=== PATIENT | male | born 1945 | race Hispanic/Latino ===

== ENCOUNTER 2017-10-11 13:37 | Observation (INO) | payer OTHER ==
[~2017-10-11] VITALS: Ht 167.6 cm; Wt 74.4 kg
[~2017-10-11 13:37] MED LIST: APRESOLINE25 MG PO
[2017-10-11] MEDS ORDERED: SODIUM CHLORIDE 0.9% 1000ML 1,000 ML IV STA (13:57)
[2017-10-11] MEDS ORDERED: ONDANSETRON HCL 4 MG ORAL DISINTEGRATING TAB PO ONE (14:00)
[2017-10-11] MEDS ORDERED: ASPIRIN 81 MG CHEW TAB PO ONE (14:00)
[2017-10-11 14:11] LABS: BASOPHILS % 0.4 % (0.0-1.0); EOSINOPHILS % 0.2 % (0.0-6.0); HEMATOCRIT 40.2 % (38.2-49.6); HEMOGLOBIN 14.4 g/dL (14.0-18.0); LYMPHOCYTES % 10.3 % (18.0-39.1); MEAN CORPUSCULAR HEMOGLOBIN 30.1 pg (28-32); MEAN CORPUSCULAR HGB CONC 35.8 g/dL (31-35); MEAN CORPUSCULAR VOLUME 83.9 fL (81-99); MONOCYTES # (AUTO) 0.7 (0.2-0.8); MONOCYTES % 7.2 % (4.4-11.3); NEUTROPHILS # (AUTO) 8.1 (2.1-6.9); NEUTROPHILS % 80.6 % (38.7-80.0); PLATELET COUNT 179 x10e3/uL (140-360); RED BLOOD COUNT 4.79 x10e6/uL (4.3-5.7)
[2017-10-11] MEDS ORDERED: DIATRIZOATE MEGL/DIATRIZOA SOD 30 ML BTL PO ONE (14:13)
[2017-10-11 14:14] LABS: INR 1.15; PROTHROMBIN TIME 13.8 seconds (11.9-14.5)
[2017-10-11 14:26] LABS: ALBUMIN 3.2 g/dL (3.5-5.0); ALBUMIN/GLOBULIN RATIO 0.6 (0.8-2.0); ANION GAP 16.1 mmol/L (8-16); CALCIUM 9.8 mg/dL (8.4-10.2); CREATININE, SERUM 1.26 mg/dL (0.72-1.25); POTASSIUM 3.1 mmol/L (3.5-5.1)
--- NOTE | 2017-10-11 14:31 | Diagnostic Imaging Report ---
EXAMINATION: CHEST SINGLE (PORTABLE) INDICATION: \S\ERMD ORDER \[id number] \S\1400 \S\Y COMPARISON: 07/02/2016 FINDINGS: AP view TUBES and LINES: None. LUNGS: Lungs are well inflated. Lungs are clear. There is no evidence of pneumonia or pulmonary edema. PLEURA: No pleural effusion or pneumothorax. HEART AND MEDIASTINUM: The cardiomediastinal silhouette is unremarkable. BONES AND SOFT TISSUES: No acute osseous lesion. Soft tissues are unremarkable. UPPER ABDOMEN: No free air under the diaphragm. IMPRESSION: No acute thoracic abnormality. Signed by: DR. Jerman Dawson MD on 10/11/2017 2:28 PM
[2017-10-11 14:48] LABS: CREATINE KINASE MB 0.5 ng/mL (0-5.0); THYROID STIMULATING HORMONE 2.843 uIU/mL (0.350-4.940)
[2017-10-11] MEDS ORDERED: POTASSIUM CHLORIDE 20 MEQ TAB CR PO STA (15:09)
--- NOTE | 2017-10-11 16:24 | Diagnostic Imaging Report ---
EXAM: CT Abdomen and Pelvis WITH contrast INDICATION: \S\R/O SBO \[id number] \S\1520 COMPARISON: 12/20/2011 TECHNIQUE: Abdomen and pelvis were scanned utilizing a multidetector helical scanner from the lung base to the pubic symphysis after administration of IV contrast. Coronal and sagittal reformations were obtained. Routine protocol was performed. Scan was performed when during portal venous phase. IV CONTRAST: 100 mL of Isovue-370 ORAL CONTRAST: Gastroview COMPLICATIONS: None RADIATION DOSE: Total DLP: ... mGy*cm Estimated effective dose: (DLP x 0.015 x size factor) mSv CTDIvol has been reviewed. It is below the limits set by the Radiation Protocol Committee (RPC). FINDINGS: LINES and TUBES: None. LOWER THORAX: Coronary artery and mitral annular calcifications. HEPATOBILIARY: No focal hepatic lesions. No biliary ductal dilation. GALLBLADDER: Small gallstone. No wall thickening. SPLEEN: No splenomegaly. PANCREAS: No focal masses or ductal dilatation. ADRENALS: No adrenal nodules KIDNEYS/URETERS: Poor cortical medullary differentiation of the inferior pole left the left kidney. No hydronephrosis. No cystic or solid mass lesions. No stones. GI TRACT: No abnormal distention, wall thickening, or evidence of bowel obstruction. There are diverticula within the colon without evidence of diverticulitis. Persistent mild thickening left paracolic gutter (series 2 image 34). Appendix is normal. PELVIC ORGANS/BLADDER: Circumferential bladder wall thickening. A punctate calcification near the left ureterovesicular junction appears to be outside of the ureter on coronal reconstructions. LYMPH NODES: Stable prominent godfrey hepatis 1.3 cm node. VESSELS: There is mild atherosclerotic disease in the aorta and major arterial branches. PERITONEUM / RETROPERITONEUM: No free air or fluid. BONES: There are degenerative changes in the lumbar spine. SOFT TISSUES: Small fat-containing left lumbar hernia with 1.2 cm neck. IMPRESSION: No evidence of bowel obstruction. Circumferential bladder wall thickening suggestive of cystitis. Additional focal areas of decreased cortical medullary differentiation in the left kidney are suggestive of pyelonephritis. Recommend correlation with urinalysis and follow up ultrasound to reevaluate the kidneys after appropriate therapy. Cholelithiasis. Signed by: DR. Jerman Dawson MD on 10/11/2017 4:21 PM
[2017-10-11] MEDS ORDERED: ONDANSETRON HCL INJ 2 MG/ML VIAL IV PRN (17:00)
[2017-10-11] MEDS ORDERED: MORPHINE SULFATE 2 MG/ML SYR IV PRN (17:00)
[2017-10-11] MEDS ORDERED: CEFTRIAXONE SOD 1 GM VIAL IV SCH (17:00)
[2017-10-11 17:02] LABS: BILIRUBIN,URINE NEGATIVE (NEGATIVE); CLARITY,URINE CLEAR (CLEAR); COLOR,URINE YELLOW (YELLOW); KETONES,URINE NEGATIVE (NEGATIVE); LEUKOCYTE ESTERASE ,URINE NEGATIVE (NEGATIVE); NITRITE,URINE NEGATIVE (NEGATIVE); PROTEIN,URINE DIPSTICK NEGATIVE (NEGATIVE); URINE UROBILINOGEN 1 mg/dL (0.2 - 1)
[2017-10-11 17:06] LABS: BACTERIA,URINE FEW /HPF; EPITHELIAL CELLS,URINE FEW /LPF; RBC,URINE 0-5 /HPF (0-5); WBC,URINE (MAN) 0-5 /HPF (0-5)
--- OUTSIDE RECORDS SUMMARY | 2017-10-11 17:15 | XMS REPORT ---
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 Allergies, Adverse Reactions, Alerts This patient has no known allergies or adverse reactions. Medications This patient has no known medications. Results Test Description Test Time Test Comments Text Results Atomic Results Result Comments CHEST SINGLE (PORTABLE) [place] [id number] Patient Name: DAMI GREEN MR #: [id number] : 1945 Age/Sex: 72/M Req #: [id number] Adm Physician: Ordered by: SOLO BOWERS POLYSOMNOGRAPHY TECH Report # : [id number] Location: ER Room/Bed: Procedure: [id number] DX/CHEST SINGLE (PORTABLE) Exam Date: 10/11/17 Exam Time: 1400 REPORT STATUS: Signed EXAMINATION: CHEST SINGLE ( PORTABLE) INDICATION: COMPARISON: 07/02/2016 FINDINGS: AP view TUBES and LINES: None. LUNGS: Lungs are well inflated. Lungs are clear. There is no evidence of pneumonia or pulmonary edema. PLEURA: No pleural effusion or pneumothorax. HEART AND MEDIASTINUM: The cardiomediastinal silhouette is unremarkable. BONES AND SOFT TISSUES: No acute osseous lesion. Soft tissues are unremarkable. UPPER ABDOMEN: No free air under the diaphragm. IMPRESSION: No acute thoracic abnormality. Signed by: DR. Jerman Galvez MD on 10/11/2017 2:28 PM Dictated By: JERMAN GALVEZ MD 27 Transcribed By: VALERIE on 10/11/171427 COPY TO: SOLO BOWERS NP CT ABDOMEN/PELVIS W [place] [address] Patient Name: DAMI GREEN MR #: [id number] : 1945 Age/Sex: 72/M Req #: [id number] Adm Physician: Ordered by: SOLO BOWERS NP Report #: [id number] Location: ER Room/Bed: Procedure: [id number] CT/CT ABDOMEN/PELVIS W Exam Date: 10/11/17 Exam Time : 1520 REPORT STATUS: Signed EXAM: CT Abdomen and Pelvis WITH contrast INDICATION: COMPARISON: 12/20/2011 TECHNIQUE: Abdomen and pelvis were scanned utilizing a multidetector helical scanner from the lung base to the pubic symphysis after administration of IV contrast. Coronal and sagittal reformations were obtained. Routine protocol was performed. Scan was performed when during portal venous phase. IV CONTRAST: 100 mL of Isovue-370 ORAL CONTRAST: Gastroview COMPLICATIONS: None RADIATION DOSE: Total DLP: ... mGy*cm Estimated effective dose: (DLP x 0.015 x size factor) mSv CTDIvol has been reviewed. It is below the limits set by the Radiation Protocol Committee (RPC) . FINDINGS: LINES and TUBES: None. LOWER THORAX: Coronary artery and mitral annular calcifications. HEPATOBILIARY: No focal hepatic lesions. No biliary ductal dilation. GALLBLADDER: Small gallstone. No wall thickening. SPLEEN: No splenomegaly. PANCREAS: No focal masses or ductal dilatation. ADRENALS: No adrenal nodules KIDNEYS/URETERS: Poor cortical medullary differentiation of the inferior pole left the left kidney. No hydronephrosis. No cystic or solid mass lesions. No stones. GI TRACT: No abnormal distention, wall thickening, or evidence of bowel obstruction. There are diverticula within the colon without evidence of diverticulitis. Persistent mild thickening left paracolic gutter (series 2 image 34). Appendix is normal. PELVIC ORGANS/BLADDER: Circumferential bladder wall thickening. A punctate calcification near the left ureterovesicular junction appears to be outside of the ureter on coronal reconstructions. LYMPH NODES: Stable prominent godfrey hepatis 1.3 cm node. VESSELS: There is mild atherosclerotic disease in the aorta and major arterial branches. PERITONEUM / RETROPERITONEUM: No free air or fluid. BONES: There are degenerative changes in the lumbar spine. SOFT TISSUES : Small fat-containing left lumbar hernia with 1.2 cm neck. IMPRESSION: No evidence of bowel obstruction. Circumferential bladder wall thickening suggestive of cystitis. Additional focal areas of decreased cortical medullary differentiation in the left kidney are suggestive of pyelonephritis. Recommend correlation with urinalysis and follow up ultrasound to reevaluate the kidneys after appropriate therapy. Cholelithiasis. Signed by: DR. Jerman Galvez MD on 10/11/2017 4:21 PM Dictated By: JERMAN GALVEZ MD 162 Transcribed By: VALERIE on 10/11/17 162 COPY TO: SOLO BOWERS NP
[2017-10-11] MEDS: D5.45%NS/KCL 20MEQ 1,000 ML IV SCH (17:30)
[2017-10-11] MEDS ORDERED: IOPAMIDOL 370 MG/ML 200 ML INFUS..BTL INJ ONE (18:01)
[2017-10-11] MEDS ORDERED: SODIUM CHLORIDE 0.9% 50ML 50 ML ONE (18:01)
[2017-10-11 18:06] VITALS: BP 125/61
[2017-10-11 20:00] VITALS: BP 110/58
[2017-10-12] VITALS (7 sets, daily range): BP systolic 117–135; BP diastolic 58–73
[2017-10-12] MEDS: D5.45%NS/KCL 20MEQ 1,000 ML IV SCH (05:50)
[2017-10-12 07:20] LABS: BASOPHILS % 0.5 % (0.0-1.0); EOSINOPHILS # (AUTO) 0.1 (0.0-0.4); EOSINOPHILS % 1.1 % (0.0-6.0); LYMPHOCYTES # (AUTO) 1.1 (1.0-3.2); LYMPHOCYTES % 16.2 % (18.0-39.1); MEAN CORPUSCULAR HEMOGLOBIN 29.8 pg (28-32); MEAN CORPUSCULAR HGB CONC 34.3 g/dL (31-35); MEAN CORPUSCULAR VOLUME 86.8 fL (81-99); MONOCYTES # (AUTO) 0.8 (0.2-0.8); MONOCYTES % 11.5 % (4.4-11.3); NEUTROPHILS # (AUTO) 4.6 (2.1-6.9); NEUTROPHILS % 69.5 % (38.7-80.0); PLATELET COUNT 159 x10e3/uL (140-360); RED BLOOD COUNT 4.03 x10e6/uL (4.3-5.7); RED CELL DISTRIBUTION WIDTH 12.4 % (11.7-14.4)
[2017-10-12 07:58] LABS: AMYLASE 82 U/L (25-125); ANION GAP 11.1 mmol/L (8-16); BLOOD UREA NITROGEN 18 mg/dL (7-26); BUN/CREATININE RATIO 21 (6-25); CALCIUM 8.7 mg/dL (8.4-10.2); CARBON DIOXIDE 27 mmol/L (22-29); CHLORIDE 97 mmol/L (98-107); CREATININE, SERUM 0.86 mg/dL (0.72-1.25); EST GLOMERULAR FILTRATION RATE > 60 ML/MIN (60-); GLUCOSE 176 mg/dL (74-118); LIPASE 92 U/L (8-78); POTASSIUM 4.1 mmol/L (3.5-5.1); SODIUM 131 mmol/L (136-145)
[2017-10-12] MEDS ORDERED: ONDANSETRON HCL 4 MG ORAL DISINTEGRATING TAB PO PRN (10:00)
[2017-10-12] MEDS: LEVOFLOXACIN 500 MG TAB PO SCH (10:10)
--- NOTE | 2017-10-12 10:53 | Consultation ---
DATE OF CONSULTATION: REASON FOR CONSULTATION: Urinary tract infection. HISTORY: This 72-year-old male who is admitted to the hospital with fever, joint pain and anorexia of 2-3 days duration. The patient has had on September 22, 2017, a transrectal biopsy of the prostate showing that he had cancer of the prostate, [place] 8 with lymphovascular invasion, as well as perineal invasion. The patient and I had discussed with his family present the cancer and the choices of treatment. The patient had been thinking about what he is going to do. With a Tex 8 and 2 risk factors, he falls into group 5 with a possibility of in the next 10 days from cancer of the prostate of 66%. The patient is in the hospital for IV antibiotics. Urine culture showed a gram-negative bacillus. We should wait until the patient has a culture report showing the sensitivity to this gram-negative bacillus, and then he should go home with oral antibiotics for the next 2-4 weeks. The patient is still undecided as to what he is going to do about his prostate cancer. IMPRESSION 1. Urinary tract infection. 2. Prostate cancer, untreated. RECOMMENDATIONS: IV antibiotics. Await until the culture report is available, and then oral antibiotics for 2-4 weeks at home. I will follow him in the office. Job#: [id number] PAULA
--- NOTE | 2017-10-12 14:19 | History and Physical ---
PCP: Dr. Gaudencio Gresham CHIEF COMPLAINT: No appetite, loose stool, abdominal cramping. No abdominal pain. No chest pain or shortness of breath. HISTORY OF PRESENT ILLNESS: Patient is a 72-year-old male who had prostate biopsy, multiple biopsies, approximately 2 weeks ago. Since then the patient has had no appetite. He has some cramping and occasional loose stool, but no abdominal pain. No nausea or vomiting. The patient came to the hospital for evaluation. CT scan of the abdomen and pelvis with contrast showed that there is circumferential urinary bladder thickening suggestive of cystitis. There is no sign of pancreatitis. The patient is otherwise stable at this time. No complaint of abdominal pain. He is a little depressed due to his prostate biopsy afterwards. He is stressed regarding the surgery but otherwise no sign of any suicidal ideation. He is doing a little bit better. PAST MEDICAL HISTORY: Status post prostate biopsy, hypertension, hyperlipidemia. PAST SURGICAL HISTORY: Noncontributory. SOCIAL HISTORY: No smoking. No alcohol consumption. No recreational drugs. MEDICATIONS: Currently not taking any medication. ALLERGIES: NO KNOWN ALLERGY. PHYSICAL EXAMINATION VITAL SIGNS: Temperature is 98. Blood pressure 126/58. Pulse rate 55. Respirations 18. GENERAL: The patient is not in any distress. He is awake, pain-free, feeling better. HEENT: Normocephalic, atraumatic, anicteric. NECK: Supple grossly. PULMONARY: Diminished breath sounds. CARDIOVASCULAR: S1 and S2, regular rate and rhythm. ABDOMEN: Soft, unremarkable, nontender. No distention. No guarding. EXTREMITIES: No cyanosis or edema. NEUROLOGIC: No focal deficit. LABORATORY: WBC is 10.0, hemoglobin 14, hematocrit 40, platelets 179. Urine is negative. Coagulase is unremarkable. Chemistry: Sodium is 131, potassium 4.1, chloride 97, bicarb 27. BUN 18 and creatinine 0.8. Glucose is 176. Lipase is 141 and 292. TSH is 2.84. Liver enzymes are slightly elevated, but otherwise insignificant. IMPRESSION 1. Possible cystitis with prostatitis post prostate biopsy. 2. Depression. 3. Possible gastroenteritis causing low potassium. PLAN: Potassium replaced. Regular diet. Continue with supportive measures. Discontinue Rocephin and start the patient on Levaquin. If the patient does well, the patient should be able to go home within 24 to 48 hours. The is no pancreatitis. No sign of gallbladder infection. There is no sign of sepsis or any sign of pyelonephritis. Job#: [id number] MH
[2017-10-12] MEDS ORDERED: MIRTAZAPINE 15 MG TAB PO SCH (21:00)
[2017-10-13] VITALS: BP 115/55
[2017-10-13 04:00] VITALS: BP 136/76
[2017-10-13 07:20] VITALS: BP 136/66
[2017-10-13 07:26] LABS: ANION GAP 12.2 mmol/L (8-16); BLOOD UREA NITROGEN 17 mg/dL (7-26); BUN/CREATININE RATIO 16 (6-25); CALCIUM 9.1 mg/dL (8.4-10.2); CARBON DIOXIDE 27 mmol/L (22-29); CHLORIDE 101 mmol/L (98-107); CREATININE, SERUM 1.04 mg/dL (0.72-1.25); EST GLOMERULAR FILTRATION RATE > 60 ML/MIN (60-); GLUCOSE 134 mg/dL (74-118); MAGNESIUM 1.8 MG/DL (1.3-2.1); PHOSPHORUS 3.1 MG/DL (2.3-4.7); POTASSIUM 4.2 mmol/L (3.5-5.1); SODIUM 136 mmol/L (136-145)
[2017-10-13 07:48] VITALS: BP 136/66
--- NOTE | 2017-10-13 08:47 | Discharge Summary ---
PCP: Dr. Gaudencio Cox CONSULTANTS: Dr. Gaudencio Cox FINAL DIAGNOSES 1. Urinary tract infection associated with prostatitis with Escherichia coli sensitive to multiple antibiotics. 2. Major depression and appetite suppressed secondary to diagnosis of high-grade prostate cancer. A 72-year-old male with prostate cancer recently diagnosed with biopsy approximately 2 weeks ago. The patient came in with no appetite, pain and depressed. Patient has no significant systemic problems. He had no pancreatitis. He does have prostatitis infection and cystitis that may have contributed to slightly elevated lipase. Patient has unremarkable noncomplicated gallstone. Patient had E. coli in the urine. Culture sensitive to multiple antibiotics. More importantly, the patient has not decided whether he wants to treat his prostate cancer because he per Dr. Cox the patient has high-grade prostate cancer with biopsy, and the patient is due to decide on whether he wants to start treatment. The patient is stable. Started the patient on Remeron 15 mg at night. He seemed to tolerate it well. Patient is doing a little bit better. He is stable. He is on Levaquin 500 mg daily orally and tolerated well. The patient will be discharged home today. Discharge home medication including Levaquin 500 mg daily for 7 days and Remeron 15 mg at night. Patient instructed follow up with Dr. Gaudencio Cox for decision on his prostate treatment. He will follow up with his family doctor for any adjustment of his depression medications. Patient is stable and discharged home today. Job#: [id number] DC
[2017-10-13] MEDS: LEVOFLOXACIN 500 MG TAB PO SCH (09:51)
[2017-10-13] MEDS ORDERED: LEVAQUIN500 MG PO (11:03)
[2017-10-13] MEDS ORDERED: REMERON15 MG PO (11:06)
[2017-10-13 11:47] VITALS: BP 116/58
== END 2017-10-13 12:26 | disposition home or self-care (01) ==
LOC: ER 13:37 → MED/SURG3 17:12 → INTOOBSV 17:12
PROVIDERS: ADMIT Internal Medicine; ATTEND Internal Medicine
DX: N41.3 Prostatocystitis (principal); K80.20 Calculus of gallbladder without cholecystitis without obstruction; K52.9 Noninfective gastroenteritis and colitis, unspecified; E87.6 Hypokalemia; I10 Essential (primary) hypertension; E78.5 Hyperlipidemia, unspecified; C61 Malignant neoplasm of prostate; C77.9 Secondary and unspecified malignant neoplasm of lymph node, unspecified; C78.6 Secondary malignant neoplasm of retroperitoneum and peritoneum; B96.89 Other specified bacterial agents as the cause of diseases classified elsewhere; F32.9 Major depressive disorder, single episode, unspecified; B96.20 Unspecified Escherichia coli [E. coli] as the cause of diseases classified elsewhere; Z16.35 Resistance to multiple antimicrobial drugs
CPT/HCPCS: 36415; 80048; 82746; 83036; 83735; 84100; 87186; 93005; G0378 ×3; 99284; J0696; J7030; Q9967

== ENCOUNTER → 2017-12-08 | Outpatient (CLI) | payer OTHER ==
[~2017-12-08] MED LIST changes: +LEVAQUIN500 MG PO; +REMERON15 MG PO
--- NOTE | 2017-12-08 15:07 | Diagnostic Imaging Report ---
Bone Scan, delayed phase INDICATION: 72 M with prostate cancer diagnosed in 09/2017. COMPARISON: CT abdo/pelvis 10/11/2017 REPORT: Approximately 3.5 hours following intravenous administration of 27.5 mCi of Tc-99m MDP, delayed total body images in the anterior and posterior projections and selected spot images were obtained. Degenerative changes are noted throughout the cervical and thoracolumbar spine as well as in the right sternoclavicular junction, bilateral shoulders and left knee. Otherwise, distribution of tracer activity is unremarkable throughout the skeletal system. No abnormal accumulation of tracer is seen in the soft tissues or urinary tract. IMPRESSION: No scan evidence of metastatic bone disease. Signed by: Dr. Jessica Hung M.D. on 12/08/2017 2:48 PM
== END ==
LOC: NM 09:22
PROVIDERS: ATTEND Radiology Radiation Oncology
DX: C61 Malignant neoplasm of prostate (principal)
CPT/HCPCS: 78306; A9503

== ENCOUNTER 2018-05-31 17:52 | Observation (INO) | payer MEDICARE, OTHER ==
[~2018-05-31] VITALS: Ht 165.1 cm; Wt 76.3 kg
[2018-05-31 19:00] LABS: BASOPHILS % 0.2 % (0.0-1.0); EOSINOPHILS % 0.2 % (0.0-6.0); HEMATOCRIT 34.6 % (38.2-49.6); HEMOGLOBIN 11.7 g/dL (14.0-18.0); LYMPHOCYTES # (AUTO) 0.4 (1.0-3.2); LYMPHOCYTES % 7.5 % (18.0-39.1); MEAN CORPUSCULAR HEMOGLOBIN 29.7 pg (28-32); MEAN CORPUSCULAR HGB CONC 33.8 g/dL (31-35); MEAN CORPUSCULAR VOLUME 87.8 fL (81-99); MONOCYTES # (AUTO) 0.5 (0.2-0.8); MONOCYTES % 8.8 % (4.4-11.3); NEUTROPHILS # (AUTO) 4.4 (2.1-6.9); NEUTROPHILS % 82.6 % (38.7-80.0); PLATELET COUNT 144 x10e3/uL (140-360); RED BLOOD COUNT 3.94 x10e6/uL (4.3-5.7); RED CELL DISTRIBUTION WIDTH 11.9 % (11.7-14.4)
[2018-05-31] MEDS ORDERED: ASPIRIN 81 MG CHEW TAB PO ONE ×2 (19:00→21:30)
[2018-05-31 19:13] LABS: INR 0.95; PROTHROMBIN TIME 13.5 seconds (11.9-14.5)
[2018-05-31 19:14] LABS: PARTIAL THROMBOPLASTIN TIME 24.5 seconds (23.8-35.5)
--- NOTE | 2018-05-31 19:19 | Diagnostic Imaging Report ---
Examination: Single AP view of the chest. COMPARISON: CT abdomen and pelvis 10/11/2017, portable chest 10/11/2017 INDICATION: Chest pain, passed out IMPRESSION: 1. Lines and Tubes: None 2. Lungs are grossly clear. No consolidation or effusion. 3. Mild prominence of the cardiac silhouette, which may be partly due to portable AP projection. Pulmonary vasculature is normal. 4. No acute bony abnormalities. Signed by: Dr. Jairo Herrera M.D. on 05/31/2018 7:16 PM
[2018-05-31 19:23] LABS: ALBUMIN 3.4 g/dL (3.5-5.0); ALBUMIN/GLOBULIN RATIO 0.9 (0.8-2.0); ANION GAP 15.7 mmol/L (8-16); CALCIUM 9.4 mg/dL (8.4-10.2); CREATININE, SERUM 2.12 mg/dL (0.72-1.25); POTASSIUM 3.7 mmol/L (3.5-5.1)
[2018-05-31 19:30] LABS: CREATINE KINASE MB 0.5 ng/mL (0-5.0)
--- NOTE | 2018-05-31 20:33 | Diagnostic Imaging Report ---
EXAMINATION: Head CT HISTORY: Dizziness, HTN, diabetes. COMPARISON: None. TECHNIQUE: Multidetector axial images were obtained without contrast from the foramen magnum to the vertex . The images were reconstructed using brain and bone algorithms. Thin section brain images were reformatted into coronal and sagittal planes. Image quality: Motion/streaking artifact limits the evaluation of the skull base and posterior cranial fossa. Dose modulation, iterative reconstruction, and/or weight based adjustment of the mA/kV was utilized to reduce the radiation dose to as low as reasonably achievable. FINDINGS: Parenchyma: 1. Scatter of hypodensity in the periventricular, dailey radiata, centrum semiovale and juxtacortical white matter, which are non-specific but most likely related to chronic small vessels ischemic changes. 2. Small chronic lacunar infarct in the right head of caudate. 3. No mass or hemorrhage. No CT evidence of acute territorial vascular insult. Extra-axial spaces:No abnormal density. No extra-axial fluid collections Brain volume: Normal for age. Ventricles: No hydrocephalus or displacement. Arteries: No density suggestive of thrombus. Dural sinuses: No abnormal density. Extra-axial spaces: No abnormal density. Foramen magnum: No mass, Chiari malformation, or basilar invagination. Sella: No obvious mass. Paranasal/mastoid sinuses: Minimal mucosa thickening of the left maxillary sinus. Skull/Scalp: No lytic or blastic lesions. No fractures. IMPRESSION: 1. No acute abnormalities. 2. Minimal chronic microvascular changes. 3. Small chronic lacunar infarct in the right head of caudate. Signed by: Dr. Jodi Burris M.D. on 05/31/2018 8:30 PM
[2018-05-31] MEDS ORDERED: SODIUM CHLORIDE 0.9% 1000ML 1,000 ML IV ONE (21:30)
--- NOTE | 2018-05-31 22:41 | NUR ---
Received report from ER nurse.
[2018-05-31] MEDS ORDERED: METFORMIN HCL850 MG (22:42)
[2018-05-31] MEDS ORDERED: FENOFIBRATE (22:42)
[2018-05-31] MEDS ORDERED: ATORVASTATIN CA40 MG (22:42)
[2018-05-31] MEDS ORDERED: ESOMEPRA (22:42)
[2018-05-31] MEDS ORDERED: [UNRECOGNIZED DRUG - OTHER] (22:42)
[2018-05-31] MEDS ORDERED: AMLODIPINE BESYL5 MG (22:42)
[2018-05-31] MEDS ORDERED: TAMSULOSIN HCL0.4 MG (22:42)
[2018-05-31] MEDS ORDERED: DEXTROSE 50% SYRINGE 50 ML IV PRN (22:45)
--- NOTE | 2018-05-31 22:55 | NUR ---
Patient arrived to floor via w/c. to room 204.
[2018-05-31 23:49] VITALS: BP 142/54
[2018-06-01] VITALS: BP 142/64
--- NOTE | 2018-06-01 | NUR ---
Assessment and physical completed. Patient AAOx3. Denies pain at this time. Patient requested to going walking around the hospital. Encourage to stay in room where he could be monitor at all times. Patient verbalized understanding. IV fluids started.
[2018-06-01] MEDS ORDERED: SODIUM CHLORIDE 0.9% 1000ML 1,000 ML ONE (02:08)
--- NOTE | 2018-06-01 02:30 | NUR ---
Blood drawn for 2nd set of cardiac enz. Patient tolerated well. Pressure dressing applied to site.
[2018-06-01 02:50] LABS: CREATINE KINASE 41 IU/L (30-200)
--- NOTE | 2018-06-01 03:59 | NUR ---
Patient resting quitly at this time. Continue monitor.
[2018-06-01 04:00] VITALS: BP 126/59
[2018-06-01 05:43] LABS: BILIRUBIN,URINE NEGATIVE (NEGATIVE); CLARITY,URINE SL CLOUDY (CLEAR); COLOR,URINE YELLOW (YELLOW); KETONES,URINE NEGATIVE (NEGATIVE); LEUKOCYTE ESTERASE ,URINE NEGATIVE (NEGATIVE); NITRITE,URINE POSITIVE (NEGATIVE); PROTEIN,URINE DIPSTICK NEGATIVE (NEGATIVE); URINE UROBILINOGEN 0.2 mg/dL (0.2 - 1)
[2018-06-01 05:47] LABS: BACTERIA,URINE MANY /HPF; EPITHELIAL CELLS,URINE RARE /LPF
[2018-06-01] MEDS ORDERED: SODIUM CHLORIDE 0.9% 1000ML 1,000 ML IV SCH (06:30)
--- NOTE | 2018-06-01 07:10 | NUR ---
Walking rounds done and report received from night nurse. Patient is awake and alert x3 in NAD. POC discussed. Patient instructed to call for assistance as needed and verbalized understanding. Call peterson within reach.
[2018-06-01] MEDS: INSULIN REGULAR, HUMAN 100 UNIT/1 ML 3ML VIAL SQ SCH ×2 (07:30→11:30)
[2018-06-01 08:00] VITALS: BP 126/59
[2018-06-01 08:09] VITALS: BP 138/64
[2018-06-01 10:27] LABS: CREATINE KINASE MB 0.8 ng/mL (0-5.0)
--- NOTE | 2018-06-01 10:50 | Discharge Summary ---
The patient was in observation. PCP: Dr. Gaudencio Gresham FINAL DIAGNOSES 1. Near syncopal episode after 3 beers and drinking at the bar. 2. Hypoglycemia secondary to chronic kidney disease and taking diabetic medication. SUMMARY: The patient is a 72-year-old male with chronic kidney disease. The patient does have hypertension. He apparently was drinking at the bar, 2-3 beers, and apparently he was having near passing out. The patient is otherwise stable. Workup otherwise unremarkable. He did tell me that his blood sugar has been low due to medications. He does have chronic kidney disease and hypertension. His EKG showed normal sinus rhythm. There is no ST-T wave changes. The patient is stable. He does want go home, and I agree. Advised the patient to hold for on his metformin and diabetic medication due to his blood sugar and also chronic kidney disease. The patient is likely dehydrated as well. He was just rehydrated and is stable with a liter of normal saline. Patient is stable and discharged home today. Follow up with Dr. Gaudencio Gresham in approximately 1 week. Job#: [id number] PR
--- NOTE | 2018-06-01 12:35 | NUR ---
Patient discharged home with written instructions. He verbalized understanding. Brother provided ride home. IV dc'd, cath intact and small dressing intact.
--- NOTE | 2018-06-01 14:05 | NUR ---
CASE MANAGEMENT INITIAL ASSESSMENT PATIENT IS DISCHARGING HOME WITH NO NEEDS. PATIENT LIVES HOME WITH [facility]. PATIENT WITH CANE. WLAKER AND WHEELCHAIR FOR ASSISTANCE IF NEEDED. LOPEZ GIVEN WITH EXPLANATION. ORIGINAL COPY PLACED IN CHART. COPY OF DOCUMENT GIVEN TO PATIENT AND PLACED IN CARE TRANSITION FOLDER. PATIENT STATES NO FURTHER QUESTIONS REGARDING DISCHARGE PLAN.
== END 2018-06-01 12:35 | disposition home or self-care (01) ==
LOC: ER 17:52 → ERHOLD 21:40 → MED/SURG 23:05
PROVIDERS: ADMIT Internal Medicine; ATTEND Internal Medicine
DX: R55 Syncope and collapse (principal); E11.649 Type 2 diabetes mellitus with hypoglycemia without coma; E78.5 Hyperlipidemia, unspecified; Z79.84 Long term (current) use of oral hypoglycemic drugs; Z85.46 Personal history of malignant neoplasm of prostate; E11.22 Type 2 diabetes mellitus with diabetic chronic kidney disease; I12.9 Hypertensive chronic kidney disease with stage 1 through stage 4 chronic kidney disease, or unspecified chronic kidney disease; N18.3 Chronic kidney disease, stage 3 (moderate); Z72.89 Other problems related to lifestyle
CPT/HCPCS: 36415; 70450; 71045; 80053; 80320; 81001; 82550 ×2; 82553 ×2; 82948 ×2; 83880; 84484 ×2; 85025; 85610; 85730; 93005; 99284; G0378 ×2; J1817; J7030

== ENCOUNTER 2024-03-24 13:40 | Emergency (ER) | payer MEDICARE ==
[~2024-03-24] VITALS: Ht 165.1 cm; Wt 76.2 kg
[~2024-03-24 13:40] MED LIST changes: +AMLODIPINE BESYL5 MG; +ATORVASTATIN CA40 MG; +ESOMEPRA; +FENOFIBRATE; +METFORMIN HCL850 MG; +TAMSULOSIN HCL0.4 MG; +[UNRECOGNIZED DRUG - OTHER]
[2024-03-24 15:59] VITALS: TEMP 97.6
[2024-03-24] MEDS: SODIUM CHLORIDE 0.9% 1000ML 1,000 ML IV ONE (16:26)
[2024-03-24] MEDS: ONDANSETRON HCL INJ 2MG/ML 2ML 2 MG/ML VIAL IV STA (16:26)
[2024-03-24 16:33] LABS: BASOPHILS % 0.2 % (0.0-1.0); EOSINOPHILS % 0.6 % (0.0-6.0); HEMATOCRIT 34.8 % (38.2-49.6); HEMOGLOBIN 11.8 g/dL (14.0-18.0); LYMPHOCYTES # (AUTO) 0.8 (1.0-3.2); LYMPHOCYTES % 16.8 % (18.0-39.1); MEAN CORPUSCULAR HEMOGLOBIN 29.3 pg (28-32); MEAN CORPUSCULAR HGB CONC 33.9 g/dL (31-35); MEAN CORPUSCULAR VOLUME 86.4 fL (81-99); MONOCYTES # (AUTO) 0.4 (0.2-0.8); NEUTROPHILS # (AUTO) 3.5 (2.1-6.9); NEUTROPHILS % 72.4 % (38.7-80.0); PLATELET COUNT 233 x10e3/uL (140-360); RED BLOOD COUNT 4.03 x10e6/uL (4.3-5.7); RED CELL DISTRIBUTION WIDTH 11.9 % (11.7-14.4); WHITE BLOOD COUNT 4.77 x10e3/uL (4.8-10.8)
[2024-03-24 16:51] LABS: ALBUMIN 3.4 g/dL (3.5-5.0); ALBUMIN/GLOBULIN RATIO 0.8 (0.8-2.0); BILIRUBIN,TOTAL 0.5 mg/dL (0.2-1.2); CREATININE, SERUM 0.94 mg/dL (0.72-1.25); TOTAL PROTEIN 7.9 g/dL (6.5-8.1)
[2024-03-24 16:53] LABS: MAGNESIUM 1.5 MG/DL (1.3-2.1)
[2024-03-24 16:56] LABS: TROPONIN I 0.009 ng/mL (0-0.300)
[2024-03-24 17:04] LABS: CLARITY,URINE SL CLOUDY (CLEAR); COLOR,URINE YELLOW (YELLOW)
[2024-03-24 17:05] LABS: BILIRUBIN,URINE NEGATIVE (NEGATIVE); GLUCOSE, URINE NEGATIVE (NEGATIVE); KETONES,URINE NEGATIVE (NEGATIVE); LEUKOCYTE ESTERASE ,URINE NEGATIVE (NEGATIVE); NITRITE,URINE NEGATIVE (NEGATIVE); PH,URINE 5.5 (5 - 7); PROTEIN,URINE DIPSTICK 2+ (NEGATIVE); URINE UROBILINOGEN 0.2 mg/dL (0.2 - 1)
[2024-03-24 17:17] LABS: BACTERIA,URINE FEW /HPF; HYALINE CASTS 0-1 (0-1); MUCUS,URINE FEW (RARE); TRANSITIONAL EPI CELLS,URINE MODERATE
[2024-03-24] MEDS ORDERED: IOPAMIDOL 370 MG/ML 100 ML INFUS..BTL INJ ONE (17:37)
[2024-03-24 18:53] VITALS: PULSE 68; RESP 18; O2SAT 98
[2024-03-24] MEDS ORDERED: PANTOPRAZOLE SO40 MG PO (19:40)
== END 2024-03-24 20:26 | disposition home or self-care (01) ==
LOC: ER 16:48
DX: R53.1 Weakness (principal); K29.70 Gastritis, unspecified, without bleeding; R63.8 Other symptoms and signs concerning food and fluid intake; K80.20 Calculus of gallbladder without cholecystitis without obstruction; R10.13 Epigastric pain; R94.31 Abnormal electrocardiogram [ECG] [EKG]
CPT/HCPCS: 36415; 71045; 74177; 80053; 81001; 82550; 83690; 83735; 84484; 85025; 93005; 99284; J2405; J2470; J7030; Q9967

== ENCOUNTER → 2024-06-02 | Day surgery (SDC) | payer MEDICARE ==
[2024-05-24 11:06] LABS: BASOPHILS % 0.4 % (0.0-1.0); EOSINOPHILS % 0.8 % (0.0-6.0); HEMATOCRIT 28.9 % (38.2-49.6); HEMOGLOBIN 9.4 g/dL (14.0-18.0); LYMPHOCYTES # (AUTO) 1.2 (1.0-3.2); LYMPHOCYTES % 24.9 % (18.0-39.1); MEAN CORPUSCULAR HEMOGLOBIN 29.5 pg (28-32); MEAN CORPUSCULAR HGB CONC 32.5 g/dL (31-35); MEAN CORPUSCULAR VOLUME 90.6 fL (81-99); MONOCYTES # (AUTO) 0.4 (0.2-0.8); MONOCYTES % 8.5 % (4.4-11.3); NEUTROPHILS # (AUTO) 3.2 (2.1-6.9); PLATELET COUNT 198 x10e3/uL (140-360); RED BLOOD COUNT 3.19 x10e6/uL (4.3-5.7); RED CELL DISTRIBUTION WIDTH 16.5 % (11.7-14.4); WHITE BLOOD COUNT 4.97 x10e3/uL (4.8-10.8)
[~2024-06-02] MED LIST changes: -AMLODIPINE BESYL5 MG; +AMLODIPINE BESYL5 MG PO; -ATORVASTATIN CA40 MG; +ATORVASTATIN CA40 MG PO; +BENICAR20 MG PO; +CALCIUM PO; +LACTATED RINGER'S 1,000 ML ONE; +LANTUS 3ML100 UNITS/ SC; +LEVOTHYROXINE88 MCG PO; +LIDOCAINE HCL 2% LOCAL INJ 5 ML SDV VIAL INJ ONE; +MELOXICAM15 MG PO; +METOCLOPRAMIDE10 MG PO; +OMEPRAZOLE40 MG PO; +PANTOPRAZOLE SO40 MG PO; +PROPOFOL IV EMULSION 50 ML IV ONE
[2024-06-02 09:17] VITALS: TEMP 98
[2024-06-02 09:30] VITALS: BP 135/68; PULSE 75; RESP 16; O2SAT 99
== END | disposition home or self-care (01) ==
LOC: OR 06:32
PROVIDERS: ATTEND Internal Medicine Gastroenterology
DX: Z12.11 Encounter for screening for malignant neoplasm of colon (principal); K63.5 Polyp of colon; K29.50 Unspecified chronic gastritis without bleeding; K31.89 Other diseases of stomach and duodenum; K44.9 Diaphragmatic hernia without obstruction or gangrene; K21.9 Gastro-esophageal reflux disease without esophagitis; K57.30 Diverticulosis of large intestine without perforation or abscess without bleeding; K64.8 Other hemorrhoids; Z71.3 Dietary counseling and surveillance; R63.4 Abnormal weight loss; E11.9 Type 2 diabetes mellitus without complications; I10 Essential (primary) hypertension; E78.5 Hyperlipidemia, unspecified; E03.9 Hypothyroidism, unspecified; Z01.812 Encounter for preprocedural laboratory examination; Z79.4 Long term (current) use of insulin; Z79.1 Long term (current) use of non-steroidal anti-inflammatories (NSAID); Z79.899 Other long term (current) drug therapy; Z68.28 Body mass index [BMI] 28.0-28.9, adult; Z85.46 Personal history of malignant neoplasm of prostate; Z92.3 Personal history of irradiation; Z87.891 Personal history of nicotine dependence
CPT/HCPCS: 36415; 43239; 45385; 85025; 88305; 88342; J2003; J2704; J7121; 45378